=== PATIENT | male | born 1975 | race Asian ===

== ENCOUNTER 2017-11-26 15:50 | Emergency (ER) | payer OTHER ==
[2017-11-26 16:08] VITALS: BP 138/82
--- NOTE | 2017-11-26 16:19 | ED ---
Throat Pain/Nasal Congestion - HPI Summary HPI Summary: 42 yr old male with the complaint of sore throat, fever, chills, myalgias. He says his daughter was diagnosed with strep throat three days ago. He denies runny nose. No other complaints. - History of Current Complaint Chief Complaint: UCGeneralIllness Time Seen by Provider: 11/26/17 16:10 - Allergies/Home Medications Allergies/Adverse Reactions: Allergies Allergy/AdvReac Type Severity Reaction Status Date / Time No Known Allergies Allergy Verified 11/26/17 16:02 Home Medications: Home Medications Acetaminophen [Tylenol Extra Strength] 1,500 mg PO ONCE PRN 11/26/17 [History Confirmed 11/26/17] PMH/Surg Hx/FS Hx/Imm Hx - Surgical History Surgery Procedure, Year, and Place: VASECTOMY Infectious Disease History: No Infectious Disease History: Denies: Traveled Outside the [place] in Last 30 Days - Family History Known Family History: Positive: None - Social History Occupation: Employed Full-time Lives: With Family Alcohol Use: Rare Substance Use Type: Reports: None Smoking Status (MU): Never Smoked Tobacco Review of Systems Positive: Fever, Chills Positive: Sore Throat Positive: Cough All Other Systems Reviewed And Are Negative: Yes Physical Exam Triage Information Reviewed: Yes Vital Signs On Initial Exam: Initial Vitals Temp Pulse Resp BP Pulse Ox 98.7 F 116 12 138/82 98 11/26/17 16:03 11/26/17 16:03 11/26/17 16:03 11/26/17 16:03 11/26/17 16:03 Vital Signs Reviewed: Yes Appearance: Positive: Well-Appearing, No Pain Distress Skin: Positive: Warm, Skin Color Reflects Adequate Perfusion Head/Face: Positive: Normal Head/Face Inspection Eyes: Positive: EOMI ENT: Positive: Pharyngeal erythema, Nasal congestion Neck: Positive: Supple, Nontender Respiratory/Lung Sounds: Positive: Clear to Auscultation, Breath Sounds Present Cardiovascular: Positive: RRR. Negative: Murmur Abdomen Description: Positive: Nontender Musculoskeletal: Positive: Strength/ROM Intact Neurological: Positive: Sensory/Motor Intact, Alert, Oriented to Person Place, Time, CN Intact II-III Psychiatric: Positive: Normal - [place] Coma Scale Best Eye Response: 4 - Spontaneous Best Motor Response: 6 - Obeys Commands Best Verbal Response: 5 - Oriented Coma Scale Total: 15 Diagnostics - Vital Signs Vital Signs Temp Pulse Resp BP Pulse Ox 11/26/17 16:03 98.7 F 116 12 138/82 98 - Laboratory Lab Statement: Any lab studies that have been ordered have been reviewed, and results considered in the medical decision making process. EENT Course/Dx - Course Course Of Treatment: 42 yr old with strep throat. Rx amox. - Diagnoses Provider Diagnoses: Strep throat Discharge - Discharge Plan Condition: Good Disposition: HOME Prescriptions: Amoxicillin PO (*) [Amoxicillin 500 MG CAP*] 500 mg PO TID #30 cap Patient Education Materials: Strep Throat (ED) Referrals: Benito Dinero DO [Primary Care Provider] -
== END 2017-11-26 16:58 | disposition home or self-care (01) ==
LOC: UCCORT 15:50
DX: J02.0 Streptococcal pharyngitis (principal); Z20.89 Contact with and (suspected) exposure to other communicable diseases
CPT/HCPCS: 87502; 87651; 99211; G0463

== ENCOUNTER 2018-07-06 19:35 | Emergency (ER) | payer OTHER ==
--- OUTSIDE RECORDS SUMMARY | 2018-07-06 19:49 | XMS REPORT ---
:1975 External Reference #:[id number] Author Organization [facility] ([facility]) Address [address] [place] [address] Phone [phone] Care Team Providers Name Role Phone HCP/LW on file Primary Care Physician Unavailable Payers Type Date Identification Numbers Payment Provider Subscriber Commercial Policy Number: [id number] Aena [facility] Catarino Angel PayID: [id number] [id number] [place] [address] Problems Description No Information Family History Date Family Member(s) Problem(s) Comments Father Heart Problems Mother Breast Cancer Mother Diabetes, Nos Mother Heart Problems First Son 9 First Daughter 8 Siblings 4 First Sister Uterine Cancer First Sister Heart Problems Paternal Grandmother Mental Illness Paternal Uncles Cerebral Palsy Paternal Uncles Deaf Paternal Aunts Deaf Social History Type Date Description Comments Education Highest Level Completed College Marital Status Work Status Currently Working Abuse No history of abuse Cigarette Use Never Smoked Cigarettes ETOH Use Occassional Alcohol Recreational Drug Use Denies Drug Use Daily Caffeine Consumes on average 2 cups of coffee per day Exercise Type/Frequency Exercises regularly Sun Exposure Does not use sunscreen Seat Belt/Car Seat Seat Belt Use - Yes Currently Active Patient is currently sexually active Age 1st [place] 19 Years Old # Partners in a Lifetime over 10 Allergies, Adverse Reactions, Alerts Date Description Reaction Status Severity Comments 06/26/2017 Penicillin active avoided d/t mom having a reaction Medications Medication Date Status Form Strength Qnty SIG Indications Ordering Provider Tums 06/26/2018 Active prn Unknown Vital Signs Date Vital Result Comment 06/27/2018 BP Systolic 122 mmHg BP Diastolic 78 mmHg Height 68.25 inches 5'8.25" Weight 183.00 lb BMI (Body Mass Index) 27.6 kg/m2 06/26/2017 BP Systolic 112 mmHg BP Diastolic 75 mmHg Height 68.5 inches 5'8.50" Weight 183.00 lb BMI (Body Mass Index) 27.4 kg/m2 Results Test Date Test Result H/L Range Note Laboratory test finding 06/27/2018 Hemoglobin A1c 5.3 Lipid Profile (Trig/Chol/HDL) 06/26/2018 Triglycerides 92 mg/dL 1 Cholesterol 219 mg/dL 2 HDL Cholesterol 64.8 mg/dL 3 LDL Cholesterol 136 mg/dL 4 Laboratory test finding 06/26/2018 Glucose 106 mg/dL High 70-100 5 Rapid Influenza A & B 11/26/2017 Influenza A Molecular NEGATIVE Negative 6 Molecular Influenza B Molecular NEGATIVE Negative Laboratory test finding 11/26/2017 Rapid Strep Molecular POSITIVE Negative 7 Lipid Profile 06/22/2017 Triglycerides 89 mg/dL 8 (Trig/Chol/HDL) Cholesterol 211 mg/dL 9 HDL Cholesterol 61.1 mg/dL 10 LDL Cholesterol 132 mg/dL 11 Laboratory test finding 06/22/2017 Glucose 96 mg/dL 70-100 12 1 Desirable: <150 Borderline High: 150-199 High: 200-499 Very High: >500 2 Desirable: <200 Borderline High: 200-239 High: >239 3 Low: <40 Desirable: 40-60 High: >60 4 Desirable: <100 Near Optimal: 100-129 Borderline High: 130-159 High: 160-189 Very High: >189 5 FASTING 12 HOUR 6 Commercial Loan Officer: [id number] Commercial Loan Officer: [id number] Desirable <150 Borderline high 150-199 High 200-499 Very High >500 9 Desirable <200 Borderline high 200-239 High >239 10 Low <40 Desirable: 40-60 High: >60 11 Desirable: <100 mg/dL Near Optimal: 100-129 mg/dL Borderline High: 130-159 mg/dL High: 160-189 mg/dL Very High: >189 mg/dL 12 FASTING 12 HOUR Procedures Description No Information Plan of Care Future Appointment(s):07/01/2019 9:15 am - Benito Dinero D.O[facility]106/27/2018 - Benito Dinero [id number] Encntr for general adult medical exam w/o abnormal findingsFollow up:1 year CPHL/DMHMR73.01 Impaired fasting glucose
[2018-07-06 20:20] VITALS: BP 146/85
--- NOTE | 2018-07-06 20:38 | ED ---
Throat Pain/Nasal Congestion - HPI Summary HPI Summary: patient with right ear pain, for the last day, with muffled hearing - History of Current Complaint Chief Complaint: UCEar Time Seen by Provider: 07/06/18 20:05 Hx Obtained From: Patient Onset/Duration: Sudden Onset Severity: Severe - used qtips recently - Allergies/Home Medications Allergies/Adverse Reactions: Allergies Allergy/AdvReac Type Severity Reaction Status Date / Time Penicillins Allergy Unknown Verified 07/06/18 20:21 Reaction Details PMH/Surg Hx/FS Hx/Imm Hx Previously Healthy: Yes - Surgical History Surgery Procedure, Year, and Place: VASECTOMY Infectious Disease History: No Infectious Disease History: Denies: Traveled Outside the [place] in Last 30 Days - Family History Known Family History: Positive: None - Social History Alcohol Use: Rare Substance Use Type: Reports: None Smoking Status (MU): Never Smoked Tobacco Review of Systems Constitutional: Negative Eyes: Negative ENT: Negative Cardiovascular: Negative Respiratory: Negative Gastrointestinal: Negative Musculoskeletal: Negative Skin: Negative Neurological: Negative All Other Systems Reviewed And Are Negative: Yes Physical Exam Triage Information Reviewed: Yes Vital Signs On Initial Exam: Initial Vitals Temp Pulse Resp BP Pulse Ox 36.8 C 68 16 146/85 97 07/06/18 20:15 07/06/18 20:15 07/06/18 20:15 07/06/18 20:15 07/06/18 20:15 Vital Signs Reviewed: Yes Appearance: Positive: Pain Distress Skin: Positive: Warm Head/Face: Positive: Other - right tm ENT: Positive: Other - ceruminous impaction Neck: Positive: Supple Respiratory/Lung Sounds: Positive: Clear to Auscultation Cardiovascular: Positive: Normal Diagnostics - Vital Signs Vital Signs Temp Pulse Resp BP Pulse Ox 07/06/18 20:15 36.8 C 68 16 146/85 97 - Laboratory Lab Statement: Any lab studies that have been ordered have been reviewed, and results considered in the medical decision making process. EENT Course/Dx - Diagnoses Provider Diagnoses: Cerumen impaction Discharge - Sign-Out/Discharge Documenting (check all that apply): Patient Departure All imaging exams completed and their final reports reviewed: Yes - Discharge Plan Condition: Fair Disposition: HOME Patient Education Materials: Cerumen Impaction (ED) Referrals: Benito Dinero DO [Primary Care Provider] - - Billing Disposition and Condition Condition: FAIR Disposition: Home
== END 2018-07-06 21:21 | disposition home or self-care (01) ==
LOC: UCCORT 19:35
DX: H61.20 Impacted cerumen, unspecified ear (principal); Z88.0 Allergy status to penicillin
CPT/HCPCS: 99212; G0463

== ENCOUNTER 2018-12-05 12:33 | Emergency (ER) | payer OTHER ==
[2018-12-05 14:36] VITALS: BP 142/73
--- NOTE | 2018-12-05 15:00 | UC ---
FLU HPI - HPI Summary HPI Summary: nasal congestion, body aches, cough, fever since 0600 today. - History of Current Complaint Chief Complaint: UCGeneralIllness Stated Complaint: COUGH,CONGESTION,SOUZA,NAUSEA Time Seen by Provider: 12/05/18 14:55 Hx Obtained From: Patient Onset/Duration: Sudden Onset, Lasting Hours Severity Currently: Moderate Severity Initially: Moderate Pain Intensity: 7 - Allergy/Home Medications Allergies/Adverse Reactions: Allergies Allergy/AdvReac Type Severity Reaction Status Date / Time Penicillins Allergy Unknown Verified 12/05/18 14:36 Reaction Details Home Medications: Home Medications guaiFENesin ER TAB [Mucinex*] 600 mg PO BID 12/05/18 [History Confirmed 12/05/18 ] PMH/Surg Hx/FS Hx/Imm Hx Previously Healthy: Yes - Surgical History Surgical History: Yes Surgery Procedure, Year, and Place: VASECTOMY - Family History Known Family History: Negative: Cardiac Disease, Hypertension - Social History Alcohol Use: Rare Substance Use Type: None Smoking Status (MU): Never Smoked Tobacco Review of Systems All Other Systems Reviewed And Are Negative: Yes Constitutional: Positive: Fever, Fatigue Skin: Positive: Negative Eyes: Positive: Negative ENT: Positive: Sore Throat, Ear Ache Respiratory: Positive: Cough Cardiovascular: Positive: Negative Gastrointestinal: Positive: Negative Genitourinary: Positive: Negative Motor: Positive: Negative Neurovascular: Positive: Negative Musculoskeletal: Positive: Negative Neurological: Positive: Headache Psychological: Positive: Negative Is Patient Immunocompromised?: No Physical Exam Triage Information Reviewed: Yes Appearance: Well-Nourished, Ill-Appearing, Pain Distress Vital Signs: Initial Vital Signs Temp 100.8 F 12/05/18 14:33 Pulse 108 12/05/18 14:33 Resp 16 12/05/18 14:33 BP 142/73 12/05/18 14:33 Pulse Ox 98 12/05/18 14:33 Vital Signs Reviewed: Yes Eye Exam: Normal ENT: Positive: Pharyngeal erythema, TM bulging Dental Exam: Normal Neck exam: Normal Respiratory: Positive: Chest non-tender, Normal breath sounds, Wheezing Cardiovascular Exam: Normal Cardiovascular: Positive: RRR, No Murmur, Pulses Normal Abdominal Exam: Normal Abdomen Description: Positive: Nontender, No Organomegaly, Soft Bowel Sounds: Positive: Present Musculoskeletal Exam: Normal Neurological Exam: Normal Psychological Exam: Normal Skin Exam: Normal Flu Course/Dx - Course Course Of Treatment: hx obtained, meds reviewed, exam performed, treated for FLu a - Differential Dx/Diagnosis Differential Diagnosis/HQI/PQRI: Bronchitis, Influenza, Other - viral syndrome Provider Diagnosis: Influenza A Discharge - Sign-Out/Discharge Documenting (check all that apply): Patient Departure All imaging exams completed and their final reports reviewed: No Studies - Discharge Plan Condition: Stable Disposition: HOME Prescriptions: Oseltamivir SUSP 75 MG dose* [Tamiflu SUSP 75 MG dose*] 75 mg PO BID #10 oral.syrin Patient Education Materials: Influenza (ED) Forms: *Work Release Referrals: Benito Dinero DO [Primary Care Provider] - Additional Instructions: 1. take the medication as prescribed. 2. Lots of fluid and lots of rest. 3. Follow up with any increased respiratory symtpoms. - Billing Disposition and Condition Condition: STABLE Disposition: Home
[2018-12-05 15:13] LABS: Influenza A Molecular POSITIVE (Negative)
== END 2018-12-05 16:06 | disposition home or self-care (01) ==
LOC: UCCORT 12:33
DX: J10.1 Influenza due to other identified influenza virus with other respiratory manifestations (principal); Z88.0 Allergy status to penicillin
CPT/HCPCS: 99212; G0463